=== PATIENT | female | born 1945 | race Caucasian/White ===

== ENCOUNTER → 2017-08-02 | Outpatient (CLI) | payer OTHER, MEDICARE ==
[~2017-08-02] VITALS: Ht 152.4 cm; Wt 62.0 kg
[~2017-08-02] MED LIST: CALCIUM500 M4 PO; VITAMIN D-3 401 EACH PO
[2017-08-02 13:59] VITALS: BP 134/60
== END | disposition home or self-care (01) ==
LOC: IVINF 13:24
DX: M85.80 Other specified disorders of bone density and structure, unspecified site (principal); Z88.0 Allergy status to penicillin
CPT/HCPCS: 96365; J3489